=== PATIENT | female | born 1945 | race Caucasian/White ===

== ENCOUNTER 2024-06-08 08:53 | Outpatient (CLI) | payer MEDICARE, BC, SELFPAY | END 2024-06-08 08:54 | disposition home or self-care (01) | LOC: AMB 06-10 12:06 | PROVIDERS: Visit Provider Emergency Medicine | DX: S99.912A Unspecified injury of left ankle, initial encounter (principal); W10.8XXA Fall (on) (from) other stairs and steps, initial encounter; Y92.008 Other place in unspecified non-institutional (private) residence as the place of occurrence of the external cause | CPT/HCPCS: A0425; A0427 ==

== ENCOUNTER 2024-06-08 09:32 | Emergency (ER) | payer MEDICARE, BC, SELFPAY ==
[2024-06-08] VITALS (14 sets, daily range): BP systolic 112–148; BP diastolic 70–130; PULSE 75–96; RESP 14–18; TEMP 36.7; O2SAT 95–99; BMI 27.0
--- NOTE | 2024-06-08 09:43 | ED_ITS ---
HPI - General Adult General Date Seen: 06/08/24 Chief complaint: Fall/Minor Trauma Stated complaint: fall Time Seen by Provider: 06/08/24 09:42 History of Present Illness HPI narrative: Patient is a 78-year-old woman visiting here from [facility], had a fall down a couple of stairs sounds like she kind of wedged her foot against the wall as she fell and injured her left ankle. She denies injuring any other part of her body, specifically denies any head or neck injury. She is not anticoagulated. She has a remote history of lung cancer as had wedge resections on bilateral lungs, is not oxygen dependent. Here by EMS, did not have any pain medication in route would like something now. No other injuries or complaints. No complaints of numbness or loss of function. Related Data Allergies Allergy/AdvReac Type Severity Reaction Status Date / Time No Known Drug Allergies Allergy Verified 06/08/24 09:36 Review of Systems Status of ROS: Reports: 6 or more systems reviewed and unremarkable except as noted in History and below PFSH PFS Social History Smoking Status: Former smoker What tobacco products do you use: cigarettes [employer] quit date/years: >15 years ago Do you use any of these nicotine containing products: None Second hand tobacco smoke exposure: Yes How often do you have a drink containing alcohol: 2-3 times a week How many standard drinks containing alcohol do you have on a typical day: 1 or 2 How often do you have six or more drinks on one occasion: Never AUDIT-C Alcohol total score: 3 Non-prescribed substance use: denies use Exam Narrative: Exam Narrative: Vital signs reviewed In general, alert, nontoxic Head: Normocephalic, atraumatic. Eyes: Sclera clear. Pupils equal and reactive. ENT: Mucous membranes moist. Neck: Supple without adenopathy. Heart: Regular rate and rhythm without murmur. Lungs: Clear. No increased work of breathing, crackles or wheezes. Abdomen: Soft, nontender to palpation. Extremities: Well perfused, pulses intact. There is significant swelling and developing bruising around the entire left ankle. She does have some tenderness of the proximal fibula. The knee is nontender, no effusion. Hip is nontender. She has intact sensation over the foot, is able to wiggle her toes. Dorsalis pedis pulse is intact. The right lower extremity is atraumatic. Upper extremities are atraumatic. Neurologic: Alert, conversant. Speech fluent, face symmetric. Moves all extremities equally. Skin: Warm, dry well perfused. Affect: Normal. Const: Vital Signs, click to edit/add: Vital Signs - 24 hr 06/08/24 09:36 06/08/24 09:39 06/08/24 09:45 Temperature 98.1 F Pulse Rate 89 96 Pulse Rate [Pulse Oximeter] 89 Respiratory Rate 18 18 Blood Pressure Blood Pressure [Ri ght Upper Arm] 143/83 H Pulse Oximetry 97 97 97 Oxygen Delivery Me thod Room Air Oxygen Flow Rate 06/08/24 10:01 06/08/24 10:03 06/08/24 10:04 Temperature Pulse Rate 86 86 87 Pulse Rate [Pulse Oximeter] Respiratory Rate 14 Blood Pressure 148/130 H Blood Pressure [Ri ght Upper Arm] Pulse Oximetry 97 99 97 Oxygen Delivery Me thod Oxygen Flow Rate 06/08/24 10:15 06/08/24 10:21 06/08/24 10:30 Temperature Pulse Rate 79 80 77 Pulse Rate [Pulse Oximeter] Respiratory Rate 16 Blood Pressure 142/70 H Blood Pressure [Ri ght Upper Arm] Pulse Oximetry 96 98 Oxygen Delivery Me thod Oxygen Flow Rate 06/08/24 10:40 06/08/24 10:40 06/08/24 10:45 Temperature Pulse Rate 76 Pulse Rate [Pulse Oximeter] Respiratory Rate Blood Pressure Blood Pressure [Ri ght Upper Arm] Pulse Oximetry 96 98 96 Oxygen Delivery Me thod Nasal Cannula Oxygen Flow Rate 3 06/08/24 10:47 06/08/24 11:00 06/08/24 11:15 Temperature Pulse Rate 78 78 75 Pulse Rate [Pulse Oximeter] Respiratory Rate 16 Blood Pressure 112/94 H Blood Pressure [Ri ght Upper Arm] Pulse Oximetry 95 96 95 Oxygen Delivery Me thod Oxygen Flow Rate Course Course ED Course: IV was placed by the paramedics. Will give 0.5 mg of Dilaudid, x-rays of the tib-fib are ordered. On exam it does not appear there is an obvious dislocation although it does appear to be fractured. Will evaluate x-rays and proceed accordingly. X-rays by my review show trimalleolar fracture, mortise is slightly widened and there is slight posterior dislocation of the talus on the tibia. I reviewed the x-rays with the patient and her family. I recommended splinting with a little bit of reduction of that posterior talar dislocation. Procedure note: She had 2 mg of Versed and 50 mcg of fentanyl for procedural pain and anxiolysis. We did maintain her on oximetry and a couple of L of oxygen by nasal cannula but she did not have any significant hypoxia. In splinting the ankle I did feel reduction of the talus anteriorly. It was splinted in place. I used Ortho Glass and Kael wraps along with stockinette and cotton padding. Post splinting x-rays show mild improvement. She tolerated all this well, she is awake, no complaints. CMS remains intact. Will put her images on a disc for her. She plans to return to [place] either today or tomorrow. Will provide some oxycodone for pain control. Reviewed the importance of nonweightbearing, will provide crutches. Reviewed importance of elevation. Also for driving, recommended that they stop every 60-90 minutes that she can walk around a little bit given increased risk of DVT due to her fracture. Vital Signs Vital signs: Initial Vital Signs Temperature 98.1 F 06/08/24 09:36 Temperature Source Temporal Artery Scan 06/08/24 09:36 Pulse Rate 89 06/08/24 09:36 Respiratory Rate 18 06/08/24 09:36 Blood Pressure 143/83 H 06/08/24 09:36 Blood Pressure Mean 103 06/08/24 09:36 Pulse Oximetry 97 06/08/24 09:36 Oxygen Delivery Method Room Air 06/08/24 09:36 Vital Signs Temperature 98.1 F 06/08/24 09:36 Pulse Rate 89 06/08/24 09:36 Respiratory Rate 18 06/08/24 09:36 Blood Pressure 143/83 H 06/08/24 09:36 Pulse Oximetry 97 06/08/24 09:36 Oxygen Delivery Method Room Air 06/08/24 09:36 Temperature 98.1 F 06/08/24 09:36 Pulse Rate 75 06/08/24 11:15 Respiratory Rate 16 06/08/24 10:47 Blood Pressure 112/94 H 06/08/24 10:47 Pulse Oximetry 95 06/08/24 11:15 Oxygen Delivery Method Nasal Cannula 06/08/24 10:40 Oxygen Flow Rate 3 06/08/24 10:40 Medications Administered Medications: Discontinued Medications Generic Name Dose Route Start Last Admin Trade Name Sorin PRN Reason Stop Dose Admin Fentanyl 50 mcg 06/08/24 10:35 06/08/24 10:19 Fentanyl 100 Mcg/2 Ml Inj IVP 06/08/24 10:36 50 mcg ONCE ONE Administration Hydromorphone HCl 0.5 mg 06/08/24 09:42 06/08/24 09:53 Hydromorphone 0.5 Mg/0.5 Ml Inj IVP 06/08/24 09:43 0.5 mg ONCE ONE Administration Midazolam HCl 2 mg 06/08/24 10:35 06/08/24 10:18 Midazolam Hcl 1 Mg/Ml Inj IVP 06/08/24 10:36 2 mg ONCE ONE Administration Medical Decision Making Imaging Data Ankle x-ray: Attestation: I have reviewed the pertinent imaging results. Radiologist's impression: [place] [address] Diagnostic Imaging Report Patient: Sparkle Medel MR#: [id number] : 1945 Acct:[id number] Loc: ED Service Date: 06/08/[address]: Ordering Physician: Lynette Rodríguez M.D. Date of Service: 06/08/24 Procedure(s): XR tibia fibula LT 2V Accession Number(s): [id number] cc: Lynette Rodríguez M.D.; Provider,Not a Local~ For Patients: As a result of the Cures Act, medical imaging exams and procedure reports are released immediately into your electronic medical record. You may view this report before your referring provider. If you have questions, please contact your health care provider. Indication: Pain of left lower extremity. Technique: Left tibia and fibula 2 views. Comparison: None. Findings: Acute displaced trimalleolar fracture. Widening of the lateral ankle space measuring up to 5 mm. Moderate soft tissue swelling at the ankle. Impression: Acute displaced trimalleolar fracture with disruption of the ankle joint. Discharge Plan Discharge Clinical Impression: Closed trimalleolar fracture of left ankle Patient Disposition: Home, Self-Care Condition: Improved Instructions: Ankle Fracture (DC) Additional Instructions: You have what is called a trimalleolar fracture of your left ankle. This means it is broken in 3 places. Today, we have placed the ankle in generally anatomical position, but this type of fracture requires surgery to fix. When you get home, you should arrange follow-up in the next week with an orthopedic surgeon. In the meantime, is is important that you elevate your leg as much as possible to help control swelling. You should not put any weight on this leg. You can use ibuprofen 400 mg and/or Tylenol 1000 mg up to 3 times daily as needed for pain. If needed for more severe pain, I have prescribed oxycodone. Fractures increase the risk of blood clots, so for your long drive home, please stop every hour or two and stretch your legs. Follow Up/Referrals: Provider,Not a Local [Primary Care Provider] - Stand Alone Forms: MyHealth Info Instructions
[2024-06-08] MEDS: HYDROmorphone 0.5 mg/0.5 ml inj IVP (09:53)
--- OUTSIDE RECORDS SUMMARY | 2024-06-08 10:11 | XMS_ITS | Referral Summary ---
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
--- OUTSIDE RECORDS SUMMARY | 2024-06-08 10:11 | XMS_ITS | Encounter Summary ---
Author Organization [facility] Address [address] [address] Care Team Providers Care Contract Management Specialist Name Role Phone Unavailable Primary Care Provider Unavailabl e Encounter Details Date Type Department Care Team (Late st Contact Info) Description 04/20/2020 [facility] [place] Conversion Encounter HISTORICAL CONVERSION Provider, MD [facility] [address] [place] [address] Social History Tobacco Use Types Packs/Day Years Used Date Smoking Tobacco: Never Assessed Comments Unknown Sex and Gender Information Value Date Recorded Sex Assigned at Not on file 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
--- OUTSIDE RECORDS SUMMARY | 2024-06-08 10:11 | XMS_ITS | Clinical Summary ---
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 Gender Identity Not on file Sexual Orientation Not on file Plan of Treatment Health Maintenance Due Date Last Done Comments DEXA Scan 1945 DTaP,Tdap,and Td Vaccines (1 - Tdap) 1962 Hepatitis C Screening 12/04/1963 Pneumo-Vaccine: 50+Yrs (1 of 1 - PCV) 12/04/1995 Zoster Vaccine (1 of 2) 12/04/1995 RSV Vaccine (60+ & 32-36 wks ) (1 - 1-dose 75+ series) 2020 COVID-19 Vaccine ( - 2023-2 5 season) 2023 Influenza Vaccine (Season Ended) 2024 HIB Vaccines Aged Out No longer eligi ble based on patient's age to complete this topic IPV Vaccines Aged Out No longer eligi ble based on patient's age to complete this topic Meningococcal B Vaccine Aged Out No l onger eligible based on patient's age to complete this topic Meningococcal Vaccine Aged Out No vijay gracy eligible based on patient's age to complete this topic Rotavirus Vaccines Aged Out No longer eligible based on patient's age to complete this topic
[2024-06-08] MEDS: MIDAZOLAM HCL 1 MG/ML inj 2 MG IVP (10:18)
[2024-06-08] MEDS: fentaNYL 100 MCG/2 ML inj 50 MCG IVP (10:19)
--- NOTE | 2024-06-08 10:28 | CRLHL7_ITS ---
For Patients: As a result of the Century Cures Act, medical imaging exams and procedure reports are released immediately into your electronic medical record. You may view this report before your referring provider. If you have questions, please contact your health care provider. Indication: Postreduction. Technique: Ankle two views through cast. Comparison: Earlier same day study at 10:11 Findings: Mild improvement in findings of the trimalleolar fracture with significant residual displacement involving the medial malleolus, lateral malleolus and posterior tibia fracture components. No new abnormalities. Impression: Mild improvement with significant residual displacement of the trimalleolar component. Dictated by Lew Phelan MD @ 06/08/2024 11:10:12 AM (Electronically Signed)
== END 2024-06-08 11:58 | disposition home or self-care (01) ==
PROVIDERS: Emergency Provider Emergency Medicine
DX: S82.855A Nondisplaced trimalleolar fracture of left lower leg, initial encounter for closed fracture (principal); W10.9XXA Fall (on) (from) unspecified stairs and steps, initial encounter
CPT/HCPCS: 29515; 73590; 73600; 94761; 99284; J1171; J2250; J3010